=== PATIENT | female | born 1985 | race Asian ===

== ENCOUNTER 2025-06-02 02:15 | Emergency (ER) | payer BC, SELFPAY ==
[2025-06-02 02:15] VITALS: BMI 25.8
[2025-06-02 02:17] VITALS: BP 112/52
[2025-06-02 03:05] VITALS: BP 103/59
[2025-06-02 03:17] LABS: Urine Character Bloody (Clear)
[2025-06-02 03:27] LABS: Urine Red Blood Cell >100 /HPF (0-2); Urine Squamous Cell 0-2 /LPF (Few); Urine White Cell None Seen /HPF (0-5)
--- NOTE | 2025-06-02 05:03 | ED.GENMED ---
History of Present Illness
<Stephanie Hollis MD, Resident - Last Filed: 06/02/25 06:04>
General
Chief Complaint: Urinary Symptoms
Source: patient
Time Seen by Provider: 06/02/25 04:51
History of Present Illness
History of Present Illness:
Patient is a 39-year-old female who presents to the emergency department with symptoms concerning for UTI. Patient was in her normal state of health up until 12:30 in the morning prior to her presentation. She woke up from sleep and had to go to
the bathroom and when she completed voiding she felt as if she had to continue to go to the bathroom and that her bladder was empty. She felt that her symptoms were reminiscent of prior UTIs she has had in the past. Her urine was pink-red in
color. Patient was due to start her menstrual cycle on Tuesday and is 2 days late. She is experiencing cramping currently. While she was in the emergency department she gave a urine sample and stated that it hurt while urinating. She denies any
risk of . She does not have any nausea vomiting or diarrhea. She does not have any flank pain. She does not have any shortness of breath, or chest pain.
Past History
<Stephanie Hollis MD, Resident - Last Filed: 06/02/25 06:04>
Past History
ED Past Medical History: Other ( Rare UTIs)
Social History
Tobacco: Non-smoker
Alcohol: None
Drug: None
Employment: Employed
Review of Systems
<Stephanie Hollis MD, Resident - Last Filed: 06/02/25 06:04>
Review of Systems
Constitutional: Reports no symptoms
EENT: Reports no symptoms
Respiratory: Reports no symptoms
Cardiac: Reports no symptoms
ABD/GI: Reports no symptoms
: Reports frequency and other ( pain near the urethral meatus)
Musculoskeletal: Reports no symptoms
Skin: Reports no symptoms
Neurological: Reports no symptoms
Endocrine: Reports no symptoms
Hematologic/Lymphatic: Reports no symptoms
Psychiatric: Reports no symptoms
Phy Exam
<Stephanie Hollis MD, Resident - Last Filed: 06/02/25 06:04>
General Physical Exam
General Presentation: well appearing and no apparent distress
General age: appears stated age
General Skin: warm and dry
General Habitus: normal
General Mental: alert
General Hydration: appears well hydrated
Cardiovascular Exam
Cardiovascular Exam: regular rate/rhythm, no edema, no gallop, no JVD and no murmur
Pulmonary Exam
Pulmonary Exam: lungs clear, no respiratory distress, no rales, chest non tender, no crackles, no rhonchi, no stridor, no wheezing and no cough
Neurological Exam
Neurological Exam: alert
Psychiatric Exam
Psychiatric Exam: normal mood/affect
Sepsis
<Stephanie Hollis MD, Resident - Last Filed: 06/02/25 06:04>
Sepsis Screening
Sepsis Assessment: Sepsis Ruled Out
Sepsis Screen
Sepsis Screen: Sepsis Ruled Out
Date: 06/02/25
Time: 06:03
Course
<Stephanie Hollis MD, Resident - Last Filed: 06/02/25 06:04>
Orders/Labs/Results
Orders:
Orders
06/02/25 03:05
HCG, Urine Qualitative Screen Urgent
Date Specimen was Collected: 06/02/25
Time Specimen was Collected: 03:03
Comment: ADD ON
Urinalysis Reflex To Culture Urgent
Date Specimen was Collected: 06/02/25
Time Specimen was Collected: 03:03
Urine Microscopic Reflex Cult Urgent
Urine Culture Urgent
MUSTAPHA Source: U
Specimen Description:
Date Specimen was Collected: 06/02/25
Time Specimen was Collected: 03:03
06/02/25 05:02
Add On- LAB Urgent
Tests Added?: urine qual HCG
06/02/25 05:11
Nitrofurantoin Monohydrate [Macrobid] 100 mg PO NOW STA
Abnormal Lab Results
06/02/25
03:05
Ur Occult Blood Reflex 4+ A
(Negative)
Urine Nitrite (Reflex) Positive A
(Negative)
Leukocyte Esterase Rfl 3+ A
(Negative)
Urine RBC >100 A /HPF
(0-2)
Urine Bacteria (Reflex) Few A
(Negative)
Urine Albumin (Reflex) 3+ A
(Neg - Trace)
Vital Signs
Initial and Last Documented VS:
Initial Vital Signs
Temp Pulse Resp BP Pulse Ox
97.9 F 64 20 112/52 98
06/02/25 02:17 06/02/25 02:17 06/02/25 02:17 06/02/25 02:17 06/02/25 02:17
Last Documented Vital Signs
Temp Pulse Resp BP Pulse Ox
97.9 F 64 18 103/59 95
06/02/25 02:17 06/02/25 05:47 06/02/25 05:47 06/02/25 05:47 06/02/25 05:47
<Tessie Ferreira, DO - Last Filed: 06/02/25 05:37>
Orders/Labs/Results
Orders:
Orders
06/02/25 03:05
HCG, Urine Qualitative Screen Urgent
Date Specimen was Collected: 06/02/25
Time Specimen was Collected: 03:03
Comment: ADD ON
Urinalysis Reflex To Culture Urgent
Date Specimen was Collected: 06/02/25
Time Specimen was Collected: 03:03
Urine Microscopic Reflex Cult Urgent
Urine Culture Urgent
M[facility]HA Source: U
Specimen Description:
Date Specimen was Collected: 06/02/25
Time Specimen was Collected: 03:03
06/02/25 05:02
Add On- LAB Urgent
Tests Added?: urine qual HCG
06/02/25 05:11
Nitrofurantoin Monohydrate [Macrobid] 100 mg PO NOW STA
Abnormal Lab Results
06/02/25
03:05
Ur Occult Blood Reflex 4+ A
(Negative)
Urine Nitrite (Reflex) Positive A
(Negative)
Leukocyte Esterase Rfl 3+ A
(Negative)
Urine RBC >100 A /HPF
(0-2)
Urine Bacteria (Reflex) Few A
(Negative)
Urine Albumin (Reflex) 3+ A
(Neg - Trace)
Vital Signs
Initial and Last Documented VS:
Initial Vital Signs
Temp Pulse Resp BP Pulse Ox
97.9 F 64 20 112/52 98
06/02/25 02:17 06/02/25 02:17 06/02/25 02:17 06/02/25 02:17 06/02/25 02:17
Last Documented Vital Signs
Temp Pulse Resp BP Pulse Ox
97.9 F 64 18 103/59 95
06/02/25 02:17 06/02/25 05:47 06/02/25 05:47 06/02/25 05:47 06/02/25 05:47
<Stephanie Hollis MD, Resident - Last Filed: 06/02/25 06:04>
*Pulse Oximetry
SaO2: 95
Oxygen Mode of Delivery: Room air
Patient hypoxic: no
*Critical Care Note
Total Time (30-74mins, 75-104mins- exclusive of procedures): 60
<Stephanie Hollis MD, Resident - Last Filed: 06/02/25 06:04>
Update Note
Update Note:
Problem List:
Urinary frequency
urinary discomfort
pain near the urethral meatus
Plan:
urinalysis with reflex to culture
beta-hCG
Differential Diagnoses:
acute UTI
urethral irritation
ectopic
Radiology: not applicable
EKG: not applicable
Labs:
urine analysis positive for occult blood, urine nitrites, leukocyte esterase
Updates:
patient does not take any Azo - indicating that urine nitrites positive is accurate
will give patient Macrobid for 5 days
patient believes that she is ready for discharge and would like to be discharged at the present time. There are no barriers that would impede the patient from being safely discharged.
ED Attending Note
<Stephanie Hollis MD, Resident - Last Filed: 06/02/25 06:04>
-
Portions of this chart may have been created with voice recognition software.� Occasional wrong word or��sound alike� substitutions may have occurred due to the inherent limitations of voice recognition software.
<Tessie Ferreira DO - Last Filed: 06/02/25 05:37>
ED Attending Note
Patient seen and examined by attending physician: Yes
I performed a history and physical exam of patient and discussed management with resident, I reviewed resident's note and agree with documented findings and plan of care.: Yes
ED Attending Note:
39-year-old woman presents with urinary frequency, urgency, dysuria and pink tinge urine that began around 1230 this morning. She has had similar symptoms in the past with previous UTIs a number of years ago. She denies frequent UTIs, no prior
history of pyelonephritis. Last menstrual period was 1 month ago, she was due 2 days ago, denies risk of . She has not had a fever nor chills. No other associated symptoms.
39-year-old woman appears her stated age, bright and alert, pleasant, appears in no acute distress. Afebrile. Vital signs within normal limits.
Appears euvolemic.
Abdomen is soft, nondistended, no appreciable tenderness. No CVA tenderness. No palpable masses.
Concern for UTI. Abdomen is soft without appreciable tenderness. No flank pain. Nothing to suggest renal colic.
She denies risk of however is a few days late thus will check urine test for completeness sake.
Urinalysis is bloody, plus for blood, nitrite positive, leukocyte Estrace +3. Greater than 100 RBCs on microscopic exam, few bacteria and although reports no WBCs visualized this may be obscured by RBCs.
Will await UCG and plan to initiate a 5-day course of Macrobid.
Urine culture is pending.
Discussed importance of staying well-hydrated on a daily basis.
Return precautions discussed.
Discharge Plan
Departure
Patient Disposition: Home (Routine Discharge)
Date of Disposition: 06/02/25
Time of Disposition: 05:33
Patient with high blood pressure during this ER visit?: No
Condition: Good
Discharge Problem:
Acute hemorrhagic cystitis
Instructions: Urinary Tract Infection, Adult (DC)
Prescriptions:
New
nitrofurantoin monohyd/m-cryst [Macrobid] 100 mg capsule
100 mg PO BID 5 Days Qty: 10 0RF
Referrals:
Siri Gonzalez MD [Family Provider, Internal Medicine] - Call in 1-3 days for appt
Interventions
Interventions:
*Risk Screen - Suicide Last Done: 06/02/25 05:30
*General Assessment Last Done: 06/02/25 05:50
*Neglect/Abuse Screening Last Done: 06/02/25 05:30
*ED- Fall Risk Assessment Last Done: 06/02/25 05:30
*ED COVID-19 Vaccine History Last Done: 06/02/25 05:30
*Nursing Disposition Last Done: 06/02/25 05:47
ED-Female Genitourinary Assessment Last Done: 06/02/25 02:36
Discharge Date and Time
Discharge Date/Time: 06/02/25 05:45
Print Language: CROATIAN
[2025-06-02] MEDS: MACROBID 100 MG PO (05:20)
[2025-06-02 05:28] LABS: HCG, Urine Qualitative Screen Negative
[2025-06-02 05:47] VITALS: BP 103/59
== END 2025-06-02 05:45 | disposition home or self-care (01) ==
LOC: EMR 02:15
PROVIDERS: EMERGENCY PHYSICIAN Emergency Medicine; FAMILY PHYSICIAN Internal Medicine
DX: N30.01 Acute cystitis with hematuria (principal); Z87.440 Personal history of urinary (tract) infections
CPT/HCPCS: 99282; 81003; 81015; 81025; 87071; 87086; 87186